=== PATIENT | female | born 1970 | race Caucasian/White ===

== ENCOUNTER → 2016-09-17 | Outpatient (CLI) | payer OTHER | END | disposition home or self-care (01) | LOC: EDSTATUS 07:46 → GMA 17:22 | PROVIDERS: ATTEND Nurse Practitioner Family | DX: E55.9 Vitamin D deficiency, unspecified (principal); R53.82 Chronic fatigue, unspecified ==

== ENCOUNTER → 2016-09-24 | Outpatient (CLI) | payer OTHER | END | disposition home or self-care (01) | LOC: GMAM 15:03 | PROVIDERS: ATTEND Family Medicine | DX: R10.84 Generalized abdominal pain (principal) ==

== ENCOUNTER → 2017-02-12 | Outpatient (CLI) | payer OTHER ==
--- NOTE | 2017-02-15 08:57 | RAD ---
Single frontal view pelvis. Indication: LEFT HIP PAIN. Comparison: None. IMPRESSION: Pelvic ring intact. No acute fracture. Mild bilateral hip osteoarthritis, left greater than right. Enthesophyte formation bilateral greater trochanters, left greater than right. Electronically signed by: Alexander Fuentes MD 02/15/2017 8:55 AM CDT
--- NOTE | 2017-02-15 09:01 | RAD ---
Three-view left knee. Indication: PAIN IN LEFT KNEE. Comparison: None. IMPRESSION: Mild tricompartmental joint space narrowing most pronounced medially with tiny joint line osteophytes. 4 mm ossified loose body projects at the lateral joint line anteriorly. Patellar spurring at the quadriceps tendon insertion and patellar tendon origin. No acute fracture. Electronically signed by: Alexander Fuentes MD 02/15/2017 8:59 AM CDT
== END | disposition home or self-care (01) ==
LOC: RAD 07:59
PROVIDERS: ATTEND Orthopaedic Surgery
DX: M25.562 Pain in left knee (principal); M25.552 Pain in left hip

== ENCOUNTER → 2017-04-20 | Outpatient (CLI) | payer OTHER ==
--- NOTE | 2017-04-21 08:17 | US ---
EXAM DESCRIPTION: Soft Tissue,Head/Neck CLINICAL HISTORY: NECK MASS. Tender. Discovered two weeks ago. COMPARISON: None Available. TECHNIQUE: Transcutaneous scanning: Two-dimensional and Doppler modes. FINDINGS: Fusiform shaped subcutaneous mass located left posterior neck base and slightly hypoechoic compared to the surrounding adipose tissue. Dimensions are 2.9 x 2.4 x 1.6 with no vascularity. Margins are partially well-defined and partially indistinct. No fluid collections. No large calcifications. IMPRESSION: Probable lipoma subcutaneous adipose tissue base of the left side of the neck. No further imaging is recommended unless mass enlarges or becomes painful. Electronically signed by: Ramone Mathews MD 04/21/2017 8:16 AM CDT
== END | disposition home or self-care (01) ==
LOC: US 09:59
PROVIDERS: ATTEND Family Medicine
DX: R22.1 Localized swelling, mass and lump, neck (principal); M54.2 Cervicalgia

== ENCOUNTER → 2017-04-27 | Outpatient (CLI) | payer OTHER | END | disposition home or self-care (01) | LOC: GMAM 15:36 | PROVIDERS: ATTEND Family Medicine | DX: E03.9 Hypothyroidism, unspecified (principal) ==

== ENCOUNTER → 2017-04-30 | Outpatient (CLI) | payer OTHER ==
--- NOTE | 2017-04-30 15:26 | MRI ---
EXAM DESCRIPTION: Cervical Spine CLINICAL HISTORY: 46 years, Female, RADICULOPATHY , left arm pain COMPARISON: FINDINGS: Sagittal and axial sequences. Prior anterior fusion with plate and screws C5-6. This provide some field artifact. Bone marrow and cord otherwise have normal signal characteristics. Tiny focal central protrusion C2-3 about 1.5 mm without stenosis. At C3-4 small focal central protrusion about 2 mm slightly flattens the thecal sac At C4-5, narrowing with central and slightly left-sided protrusion. Protrusion up to about 2.5 mm centrally. Slightly less laterally. This flattens the thecal sac and probably impinges slightly on the central portion of the cord. C5-6 postsurgical changes present with minimal bulge asymmetric to left. At C6-7, large 5 mm protrusion AP dimensions. Width about 8 mm. This effaces the subarachnoid space and presses on the left side of the cord. IMPRESSION: 1. Large focal protrusion C6-7 which presses on the left side of the cord 2. Smaller central and left-sided protrusion C4-5 with slight flattening of the central portion of the cord 3. Postsurgical changes C5-6. Electronically signed by: Steven Bang MD 04/30/2017 3:25 PM CDT
== END | disposition home or self-care (01) ==
LOC: MRI 07:09
PROVIDERS: ATTEND Physical Medicine & Rehabilitation
DX: M54.12 Radiculopathy, cervical region (principal); M54.2 Cervicalgia

== ENCOUNTER → 2017-05-24 | Outpatient (CLI) | payer OTHER ==
--- NOTE | 2017-05-26 15:32 | MAM ---
EXAM DESCRIPTION: Screening Mammogram,Bilateral: Digital Mammography CLINICAL HISTORY: 46 years Female SCREENING . No complaints. Remote family history of breast cancer. Perimenopausal. Currently on HRT. COMPARISON: 2-D digital screening bilateral study 04/30/2014. No prior reports available. TECHNIQUE: Bilateral CC and MLO projection full-field images, 2-D digital screening mammographic technique. CAD was utilized. FINDINGS: The breast parenchymal density pattern is: Heterogeneously dense breast tissue, which may obscure small masses. Right axillary and intramammary lymph nodes. No skin thickening or nipple retraction. Bilateral solitary microcalcifications. No focal, stellate mass or density, focal asymmetry , and no suspicious microcalcifications bilaterally. Stable mammograms compared to the prior study, taking into account differences in mammographic technique. IMPRESSION: BI-RADS CATEGORY: 2 - BENIGN FINDINGS. FOLLOW UP: Routine digital bilateral screening, one year interval from May 2017. Written communication explaining the IMPRESSION and follow-up, will be mailed to the patient and referring health care provider. According to the [employer], yearly mammograms are recommended starting at age 40 and continuing as long as a woman is in good health. Any breast change noted on a breast self-exam should be reported promptly to the patient's healthcare provider. Breast MRI is recommended for women with an approximately 20-25% or greater lifetime risk of breast cancer, including women with a strong family history of breast or ovarian cancer and women who have been treated for Hodgkin's disease. A negative mammographic report should not delay tissue diagnosis in patients with significant clinical history or physical findings. Extremely dense breast tissue limits the sensitivity of digital mammography. Electronically signed by: Ramone Mathews MD 05/26/2017 3:31 PM [facility]
== END ==
LOC: MAMMO 16:30
PROVIDERS: ATTEND Family Medicine
DX: Z12.31 Encounter for screening mammogram for malignant neoplasm of breast (principal)

== ENCOUNTER → 2018-01-27 | Outpatient (CLI) | payer OTHER ==
--- NOTE | 2018-01-27 15:28 | MRI ---
EXAM DESCRIPTION: Knee,Left: MRI. CLINICAL HISTORY: PAIN IN LEFT KNEE COMPARISON: Radiographs of the left knee 02/12/2017. TECHNIQUE: Multiplanar, high-field MRI, multiple sequences, without contrast: Left knee. FINDINGS: Abnormal horizontal signal in the posterior horn of the medial meniscus extending to the inferior articular surface and into the body of the meniscus. Continuation of the tear versus orthogonal cleavage plane tear of the anterior horn. Anterior and posterior central attachments are not torn but there is degenerated signal in the posterior attachment. Degenerative signal. Moderate chondromalacia medial compartment with marginal spurs. Grade 3 osteochondrosis in the outer aspect of the anterior medial condyle. Minimal subchondral edema on the anterior outer aspect of the medial plateau. Joint space narrowing. Minimal effusion. Normal signal in the lateral meniscus. Minimal chondromalacia. Minimal effusion with joint space maintained. Normal signal in the anterior and posterior cruciate ligaments. Degenerative signal and minimal thickening in the femoral attachment of the fibular collateral ligament. Medial collateral ligament is intact. Normal signal in the iliotibial band. Posterior muscles and soft tissues are negative. Suprapatellar effusion. Intermediate signal in the distal quadriceps tendon. Edema anterior to the patellar tendon. Lateral patellar tilt. Minimal chondromalacia lateral patellar facet cartilage. Intermediate signal and also thickness of the medial patellofemoral ligament and soft tissue restraints. Spur on the medial femoral trochlea with moderate chondromalacia inferior to the spur. IMPRESSION: 1. Horizontal inferior tear the posterior horn of the left medial meniscus with horizontal cleavage plane tear involving the body in the anterior horn. Chondromalacia in the medial compartment with joint space narrowing and effusion. Grade 3 osteochondrosis in the outer aspect of the anterior medial condyle and subchondral edema and outer anterior medial plateau. No loose bodies. 2. Degenerative signal in the femoral attachment of the fibular collateral ligament. Collateral ligaments and cruciate ligaments are intact with joint effusion. 3. Suprapatellar effusion, lateral patellar tilt. Mild to moderate chondromalacia lateral patellar facet. Spur on the medial femoral trochlea with almost full-thickness chondromalacia inferior to the spur. Degenerative attenuation in the medial patellofemoral soft tissue restraints. Prepatellar edema possibly bursitis. Degeneration versus mild strain of the distal quadriceps tendon. Electronically signed by: Ramone Mathews MD 01/27/2018 3:27 PM CDT
== END ==
LOC: MRI 11:00
PROVIDERS: ATTEND Family Medicine
DX: S83.242A Other tear of medial meniscus, current injury, left knee, initial encounter (principal); M94.262 Chondromalacia, left knee; M25.462 Effusion, left knee

== ENCOUNTER → 2018-01-31 | Outpatient (CLI) | payer OTHER ==
--- NOTE | 2018-01-31 16:06 | RAD ---
EXAM DESCRIPTION: Knee,Left Complete CLINICAL HISTORY: PAIN IN LT KNEE COMPARISON: None. TECHNIQUE: 4 views left FINDINGS: Loss of medial joint space is observed. Degenerative changes are observed in the patellofemoral joint. No evidence of a joint effusion is seen. No fracturing is detected. IMPRESSION: Degenerative changes are observed in the patellofemoral joint and medial joint compartment. Electronically signed by: Sourav Hummel MD 01/31/2018 4:05 PM CDT
--- NOTE | 2018-01-31 16:07 | RAD ---
EXAM DESCRIPTION: Pelvis CLINICAL HISTORY: PAIN IN LT HIP COMPARISON: None. TECHNIQUE: AP pelvis FINDINGS: Mild femoral head osteophyte formation is observed in the left. No fracture is detected. No pelvic abnormality is seen. IMPRESSION: Mild degenerative changes are observed in the left hip. Exam is otherwise unremarkable. Electronically signed by: Sourav Hummel MD 01/31/2018 4:06 PM CDT
== END ==
LOC: RAD 10:31
PROVIDERS: ATTEND Orthopaedic Surgery
DX: M25.562 Pain in left knee (principal); M25.552 Pain in left hip

== ENCOUNTER → 2018-02-08 | Outpatient (CLI) | payer OTHER | LOC: RESP 13:27 | PROVIDERS: ATTEND Orthopaedic Surgery | DX: Z01.818 Encounter for other preprocedural examination (principal) ==

== ENCOUNTER 2018-02-16 05:41 | Day surgery (SDC) | payer OTHER ==
--- NOTE | 2018-02-15 11:44 | HP ---
CHIEF COMPLAINT: Knee pain. HISTORY OF PRESENT ILLNESS: Sandra is a 47-year-old female with a history of pain in the knee that has been getting progressively worse. She has a history of advanced arthritis of the knee and she also has complex tearing of the menisci. Because of her symptoms, she has been undergoing conservative measures , however, has failed conservative treatments. Because of her failure of conservative treatment, she has requested operative intervention. After discussing the risks, benefits and alternatives to that, the patient has given informed consent. PAST SURGICAL HISTORY: 1. Cardiac ablation. 2. Cholecystectomy. 3. Meniscectomy. 4. Cervical fusion. 5. Carpal tunnel release. MEDICATIONS: 1. Metoprolol. 2. Bettina. 3. Thyroid medication. 4. control. ALLERGIES: PENICILLIN, KEFLEX. CODE STATUS: Full code. IMMUNIZATIONS: Up to date. FAMILY HISTORY: None pertinent to today's complaint. SOCIAL HISTORY: The patient does not drink, smoke or use any illicit drugs. REVIEW OF SYSTEMS: Negative except as indicated in the History of Present Illness. PHYSICAL EXAMINATION: VITAL SIGNS: Blood pressure 191/116. Pulse 64. Height 5'4". Weight 270. GENERAL: The patient is an obese female in no acute distress. MENTAL STATUS: The patient is awake, alert, and is able to give a good history and participate in the physical. The patient is oriented to person, place and time. SKIN: Normal tone and turgor. MUSCULOSKELETAL: She has full extension of the knee with flexion to about 120 degrees. It is slightly limited secondary to body habitus. She has no varus/ valgus or anterior/posterior laxity. She has 5/5 strength. She has no discernible effusion. She walks with a slight antalgic gait secondary to pain. IMAGING: X-rays show advanced arthritis. ASSESSMENT: 1. Arthritis. 2. Meniscus tear. 3. Knee pain. PLAN: The plan at this point is for knee arthroscopy. We have discussed the possibility of return of her pain and the fact that we do not know the extent of the potential for improvement in her pain. After discussing the risks, benefits, and alternatives to that and the patient has given informed consent. #[id number] [facility]ENTER[facility]
[~2018-02-16 05:41] MED LIST: SCOPOLAMINE PATCH 1.5MG 1 EA TD ONE
[2018-02-16] MEDS ORDERED: BUPIVACAINE 0.25% W/EPI 50 ML VIAL INJ ONE (06:33)
[2018-02-16] MEDS ORDERED: ceFAZolin SODIUM 1 GM VIAL ONE (06:33)
[2018-02-16] MEDS ORDERED: MIDAZOLAM INJ 2 MG/2 ML VIAL ONE (06:35)
[2018-02-16] MEDS ORDERED: fentaNYL CITRATE INJ 50 MCG/ML AMP ONE (06:36)
[2018-02-16] MEDS ORDERED: LACTATED RINGERS 1,000 ML ONE (07:21)
[2018-02-16] MEDS ORDERED: SODIUM CHLORIDE 0.9% 250ML 250 ML ONE (07:22)
[2018-02-16] MEDS ORDERED: VANCOMYCIN HCL INJ 1,000 MG VIAL IVPB ONE (07:22)
[2018-02-16] MEDS: VANCOMYCIN HCL INJ 1,000 MG VIAL IVPB ONE ×2 (07:37→07:58)
[2018-02-16] MEDS: ceFAZolin SODIUM 1 GM VIAL ONE ×2 (07:48→07:58)
[2018-02-16] MEDS ORDERED: HYDROmorphone HCL INJ 2 MG/ML VIAL ONE (08:25)
[2018-02-16 08:41] VITALS: O2SAT 95
[2018-02-16] MEDS ORDERED: ACETAMINOPHEN 500 MG TAB ONE (09:18)
[2018-02-16] MEDS ORDERED: METOCLOPRAMIDE HCL INJ 10 MG/2 ML VIAL IV ONE (10:00)
[2018-02-16] MEDS ORDERED: DEXAMETHASONE INJ 10 MG/ML VIAL IV ONE (10:00)
[2018-02-16] MEDS ORDERED: LIDOCAINE 1% 10 ML VIAL INJ ONE (10:00)
[2018-02-16] MEDS ORDERED: KETOROLAC TROMETHAMINE INJ 30 MG/ML VIAL IV ONE (10:00)
[2018-02-16] MEDS ORDERED: PROPOFOL 200 MG/20 ML VIAL IV ONE (10:00)
[2018-02-16] MEDS ORDERED: raNITIdine HCL INJ 25 MG/ML VIAL IV ONE (10:00)
--- NOTE | 2018-02-16 10:31 | OP ---
DATE OF PROCEDURE: 02/16/18 PREOPERATIVE DIAGNOSIS: 1. Left knee meniscus tear. 2. Left knee osteoarthritis. POSTOPERATIVE DIAGNOSIS: 1. Left knee meniscus tear. 2. Left knee osteoarthritis. PROCEDURE: 1. Chondroplasty. 2. Partial meniscectomy. SURGEON: Mario Laughlin MD. GRINDER OUTSIDE DIAMETER: Ramone Bright CST, -C. ANESTHESIA: General anesthesia. COMPLICATIONS: None. FINDINGS: 1. Complex tearing of the medial meniscus with flap tear extending from the midbody posteriorly. 2. Full thickness flap defect of the cartilage at the edge of the articular surface on the medial femoral condyle. 3. Grade 3 to 4 chondral changes on the tibial plateau. 4. Normal anterior cruciate ligament and normal posterior cruciate ligament. 5. Grade 2 chondral changes on the lateral compartment. 6. Normal lateral gutter. 7. Normal suprapatellar pouch. 8. Normal patellofemoral joint. 9. Normal lateral gutter. INDICATION: Sandra has a long history of pain in the knee which has failed conservative measures. Because of her failure of conservative measures, she has requested operative intervention. After discussing the risks, benefits and alternatives to that, the patient has given informed consent for that. PROCEDURE: The patient was brought to the Operating Room and placed in supine position. General anesthesia was induced and the patient's leg was sterilely prepped and draped. Following prepping and draping, diagnostic arthroscopy was carried out with the above findings. Following diagnostic arthroscopy, the medial meniscus was debrided with a 3.5 mm full radius shaver. The meniscus was thoroughly probed and there were no free elements and the remaining meniscal rim was stable. Attention was focused on the flap tear of the cartilage on the medial femoral condyle. It was debrided to a stable base. Following debridement, the cartilage rim was probed and there was no elevated cartilaginous fragments. The knee was thoroughly irrigated and the scope was removed. The knee was drained. Following draining of the knee, the wounds were closed with Nylon suture. Sterile dressings were placed. The patient was awoken from anesthesia and taken to Recovery. POSTOPERATIVE INSTRUCTIONS: The patient will be partial weightbearing and will followup with us in two days. We will discuss her findings and any future needed treatment at that time. #[id number] [facility]
[2018-02-16 11:04] VITALS: BP 162/98; TEMP 97.5
== END 2018-02-16 10:00 | disposition home or self-care (01) ==
LOC: AMB 05:41
PROVIDERS: ATTEND Orthopaedic Surgery
DX: S83.232A Complex tear of medial meniscus, current injury, left knee, initial encounter (principal); M17.12 Unilateral primary osteoarthritis, left knee; R53.82 Chronic fatigue, unspecified; I11.9 Hypertensive heart disease without heart failure; G47.30 Sleep apnea, unspecified; E03.9 Hypothyroidism, unspecified; I47.1 Supraventricular tachycardia; E66.9 Obesity, unspecified; Z68.42 Body mass index [BMI] 45.0-49.9, adult; Z88.0 Allergy status to penicillin; Z88.8 Allergy status to other drugs, medicaments and biological substances; Z79.899 Other long term (current) drug therapy
CPT/HCPCS: 01400; 29881; 81025; J0690; J1100; J1170; J1885; J2250; J2765; J2780; J3010; J3370; J3490; J7050; J7120

== ENCOUNTER → 2018-06-22 | Outpatient (CLI) | payer OTHER ==
--- NOTE | 2018-06-27 16:34 | MAM ---
EXAM DESCRIPTION: 3D Screening BILATERAL : Digital Mammography. CLINICAL HISTORY: 47 years Female SCREEN . No complaints or personal history of breast cancer. Remote family history of breast cancer. Childbirth. Premenopausal. No HRT.. Lifetime risk of developing breast cancer (Tyrer-Cuzick model)(%): 8.6. COMPARISON: 2-D digital screening bilateral mammography 05/24/2017. TECHNIQUE: Bilateral CC and MLO projection full-field images, digital tomosynthesis mammographic technique. Bilateral digital 2-D full-field MLO images. CAD not available for tomosynthesis or 2-D images. FINDINGS: The breast parenchymal density pattern is: Heterogeneously dense breast tissue, which may obscure small masses. No skin thickening or nipple retraction. Bilateral solitary microcalcifications. Right axillary lymph nodes. Focal asymmetry in the upper outer quadrant of the posterior third of the right breast at approximately 9:30 clock position, 10 cm from the nipple. Not well seen on the prior study. Not associated with microcalcifications. No new focal, stellate mass or density, focal asymmetry , and no suspicious microcalcifications left breast. IMPRESSION: BI-RADS CATEGORY: 0 - INCOMPLETE- Need additional imaging evaluation. FOLLOW-UP: Recall for additional imaging: Targeted right breast ultrasound of the region of interest. Diagnostic right breast digital mammography if indicated by ultrasound examination. Written communication concerning the IMPRESSION and Follow-up, will be mailed to the patient and referring health care provider. Electronically signed by: Ramone Mathews MD 06/27/2018 4:33 PM [facility]
== END ==
LOC: MAMMO 16:30
PROVIDERS: ATTEND Family Medicine
DX: Z12.31 Encounter for screening mammogram for malignant neoplasm of breast (principal)

== ENCOUNTER → 2018-07-06 | Outpatient (CLI) | payer OTHER ==
--- NOTE | 2018-07-06 09:17 | US ---
EXAM DESCRIPTION: Breast,Right: Ultrasound CLINICAL HISTORY: 47 yearsFemaleABNORMAL MAMMOGRAM COMPARISON: Digital screening tomosynthesis bilateral breasts 06/22/2018 TECHNIQUE: Transcutaneous scanning of the right breast utilizing robledo-scale and Doppler modes. Scanning performed by the puzzle assembler and Dr. Mathews. FINDINGS: Scanning of the right upper quadrant of the breast from the nipple to the chest wall. Emphasis at the 10:00 and 11:00 position in the posterior third. Mixture of fibroglandular and fatty echotexture is. No dominant solid mass or distinct cyst. No parenchymal edema or large calcification. No overlying skin changes. No abnormal vascularity. IMPRESSION: Benign exam. BIRAD CATEGORY: 2 BENIGN FINDINGS. RECOMMENDATIONS: FOLLOW UP: Return to digital bilateral mammographic screening, one year interval from June 2018. The FINDINGS and the FOLLOW-UP plan were reviewed in person with the patient after the examination. Written communication explaining the IMPRESSION and FOLLOW-UP will be mailed to the patient and referring care provider. According to the [employer], yearly mammograms are recommended starting at age 40 and continuing as long as a woman is in good health. Any breast change noted on a breast self-exam should be reported promptly to the patient's healthcare provider. Breast MRI is recommended for women with an approximately 20-25% or greater lifetime risk of breast cancer, including women with a strong family history of breast or ovarian cancer and women who have been treated for Hodgkin's disease. A negative mammographic report should not delay tissue diagnosis in patients with significant clinical history or physical findings. Extremely dense breast tissue limits the sensitivity of digital mammography. Electronically signed by: Ramone Mathews MD 07/06/2018 9:16 AM [facility]
== END ==
LOC: MAMMO 08:12
PROVIDERS: ATTEND Family Medicine
DX: R92.8 Other abnormal and inconclusive findings on diagnostic imaging of breast (principal)

== ENCOUNTER → 2020-05-29 | Outpatient (CLI) | payer BC | LOC: GMAM 11:09 | PROVIDERS: ATTEND Family Medicine | DX: E53.8 Deficiency of other specified B group vitamins (principal); I10 Essential (primary) hypertension; R68.89 Other general symptoms and signs; E03.9 Hypothyroidism, unspecified; E55.9 Vitamin D deficiency, unspecified ==

== ENCOUNTER → 2020-06-11 | Outpatient (CLI) | payer BC ==
--- NOTE | 2020-06-11 14:06 | MRI ---
EXAM DESCRIPTION: Lumbar Spine w/o Contrast CLINICAL HISTORY: LOW BACK PAIN COMPARISON: None. TECHNIQUE: Multiplanar, multisequence MRI of the lumbar spine was performed without contrast. FINDINGS: Lumbar vertebral body heights are maintained. Normal alignment of lumbar spine. 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 Conus medullaris terminates at L1-L2 and is unremarkable. No marrow replacing process. Visualized intra-abdominal retroperitoneal structures show no acute findings. T12-L1: Disc desiccation and mild loss of disc space height. No spinal canal stenosis or foraminal encroachment. L1-2 No significant findings. L2-3 No significant findings. L3-4 Mild facet hypertrophic and degenerative changes are seen without spinal canal stenosis or significant foraminal encroachment. L4-5 Mild bilateral facet hypertrophic and degenerative changes are seen with ligamentum flavum thickening. Mild spinal canal stenosis is seen with mild to moderate left greater than right foraminal encroachment. L5-S1 Mild bilateral facet hypertrophic and degenerative changes are seen. No spinal canal stenosis. Mild bilateral foraminal encroachment. IMPRESSION: Mild facet arthropathy from L3 through S1 is seen contributing to mild and mild to moderate foraminal encroachment most prominent at L4-5 as described above. Electronically signed by: Antonio Rodas MD 06/11/2020 2:05 PM [facility]
== END ==
LOC: MRI 09:00
PROVIDERS: ATTEND Family Medicine
DX: M46.96 Unspecified inflammatory spondylopathy, lumbar region (principal)

== ENCOUNTER → 2020-07-09 | Outpatient (CLI) | payer BC | LOC: GMAM 17:48 | PROVIDERS: ATTEND Family Medicine | DX: R06.02 Shortness of breath (principal); E03.9 Hypothyroidism, unspecified; R60.0 Localized edema ==